=== PATIENT | female | born 1945 | race Two or more races ===

== ENCOUNTER 2018-03-10 17:10 | Inpatient (IN) | payer OTHER ==
[~2018-03-10] VITALS: Ht 157.5 cm; Wt 45.4 kg
[2018-03-11] MEDS ORDERED: OLAN5TAB3 PO (01:45)
[2018-03-11] MEDS ORDERED: QUET200T PO (01:46)
[2018-03-11] MEDS ORDERED: ATOR10TA PO (01:46)
[2018-03-11] MEDS ORDERED: BENZ0.5T43 PO (01:48)
[2018-03-11] MEDS ORDERED: INSU100V10 SQ (01:50)
[2018-03-11] MEDS ORDERED: LEVO88TA5 PO (01:51)
[2018-03-11] MEDS ORDERED: ALBU2.5V13 NEB (01:52)
[2018-03-11] MEDS ORDERED: IPRA0.2S49 NEB (01:53)
[2018-03-11] MEDS ORDERED: METF-440 PO (01:55)
[2018-03-11 01:59] VITALS: BP 130/68
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
[2018-03-11] MEDS: *INSULIN REGULAR(HUMULIN R)HUM 100 UNIT/ML VIAL SQ PRN ×2 (02:27→21:13)
[2018-03-11] MEDS ORDERED: DEXTROSE 50%-WATER 50 ML DISP.SYRIN IV PRN ×2 (02:30→08:30)
[2018-03-11] MEDS ORDERED: MAG HYDROX/AL HYDROX/SIMETH 30 ML UDC PO PRN (02:30)
[2018-03-11] MEDS ORDERED: MAGNESIUM HYDROXIDE 30 ML UDC PO PRN (02:30)
[2018-03-11] MEDS ORDERED: ALBUTEROL FS 2.5 MG/3 ML VIAL.NEB NEB PRN (02:30)
[2018-03-11] MEDS ORDERED: ACETAMINOPHEN 325 MG TABLET PO PRN (02:30)
[2018-03-11] MEDS ORDERED: INSULIN REGULAR, HUMAN 100 UNIT/ML 3 ML VIAL SQ PRN (02:30)
[2018-03-11] MEDS ORDERED: BLOOD SUGAR DIAGNOSTIC 1 EACH STRIP VI SCH (02:30)
--- NOTE | 2018-03-11 02:40 | NUR ---
GPS RN NOTES BLOOD SUGAR CHECK AND BLOOD SUGAR WAS 353 MG/DL ,NOTIFED PROPERTIES SUPERVISOR TELEPHONE ORDERS RECEIVED AND CARRIED OUT. INSULLIN REGULAR 10 UNIT GIVEN PER MD ORDERS. PT. SLEEPING, AT THIS TIME ,NO ACUTE DISTRESS NOTED, DENIES ANY PAIN DISCOMFORT AT THIS TIME
[2018-03-11] MEDS: IPRATROPIUM NEB FS 0.5 MG/2.5 ML AMPUL.NEB NEB PRN (05:33)
[2018-03-11 08:00] VITALS: BP 117/56
--- NOTE | 2018-03-11 08:00 | NUR ---
GPS/RN BS 348, 16 UNITS REGULAR INSULIN ADMINISTERED PER SLIDING SCALE. WILL CONTINUE TO MONITOR.
--- NOTE | 2018-03-11 08:00 | NUR ---
GPS/RN BS 348, 16 UNITS REGULAR INSULIN ADMINISTERED. WILL CONTINUE TO MONITOR.
[2018-03-11] MEDS ORDERED: IPRATROPIUM NEB FS 0.5 MG/2.5 ML AMPUL.NEB NEB PRN (08:30)
[2018-03-11] MEDS ORDERED: ALBUTEROL FS 2.5 MG/0.5 ML VIAL.NEB NEB PRN (08:30)
[2018-03-11] MEDS ORDERED: *INSULIN REGULAR(HUMULIN R)HUM 100 UNIT/ML VIAL SQ PRN (08:30)
[2018-03-11] MEDS: ATORVASTATIN 10 MG TABLET PO SCH (09:33)
[2018-03-11] MEDS: INSULIN GLARGINE, 100 UNIT/ML CARTRIDGE SQ SCH (09:40)
[2018-03-11] MEDS: INSULIN REGULAR, HUMAN 100 UNIT/ML 3 ML VIAL SQ PRN ×3 (09:41→21:08)
[2018-03-11] MEDS: clonazePAM 0.5 MG TABLET PO PRN (10:14)
--- NOTE | 2018-03-11 11:50 | NUR ---
EBTTIE met with APS Worker, Chloe Wang ([phone]), and discussed the pt's history and plan. The APS worker stated that the pt cannot be discharged back home to the because she stated that she is not comfortable with him and it would not be considered a safe discharge. The SW informed her that she was informed that the pt's son would take the pt upon discharge. BETTIE does not have the son's phone number but will be contacting the for that information.
--- NOTE | 2018-03-11 11:53 | NUR ---
SW met with the pt and she was disoriented and unable to answer any of the questions relating to the psychosocial assessment. BETTIE will conduct the assessment with the pt's family members.
--- NOTE | 2018-03-11 13:00 | NUR ---
GPS/RN RADHA BLAND NOTIFIED THAT PATIENT IS REFUSING LUNCH OR SNACKS AND BS READING OF 381. NO NEW ORDERS AT THIS TIME. NO DISTRESS AT THIS TIME, WILL CONTINUE TO MONITOR.
--- NOTE | 2018-03-11 13:15 | NUR ---
GPS/RN RADHA BLAND NOTIFIED THAT PATIENT IS CONGESTED. NO NEW ORDERS AT THIS TIME.
[2018-03-11] MEDS: BLOOD SUGAR DIAGNOSTIC 1 EACH STRIP IN SCH ×3 (13:16→20:58)
[2018-03-11] MEDS: OLANZAPINE 5 MG TABLET PO SCH ×2 (15:04→20:21)
[2018-03-11] MEDS: DIVALPROEX SODIUM 250 MG TABLET.DR PO SCH ×2 (15:04→20:20)
[2018-03-11 16:00] VITALS: BP 100/55
--- NOTE | 2018-03-11 16:16 | NUR ---
BETTIE called the pt's , Rohit ([phone]), and conducted the psychosocial assessment with him.
--- NOTE | 2018-03-11 16:18 | NUR ---
SW called the pt's previous manager social work at [facility], Terrie Stern ([phone]), and discussed the pt's behaviors.
--- NOTE | 2018-03-11 18:09 | NUR ---
GPS/RN BS 273, ADMINISTERED 12 UNITS REGULAR INSULIN PER SLIDING SCALE. WILL CONTINUE TO MONITOR.
[2018-03-11] MEDS: TEMAZEPAM 7.5 MG CAPSULE PO PRN (20:21)
--- NOTE | 2018-03-11 20:22 | NUR ---
TEMAZEPAM 7.5 MG CAP PO GIVEN FOR SLEEP PER HER REQUEST.
--- NOTE | 2018-03-11 21:08 | NUR ---
ACCUCHECK 288 MG/DL, 6 UNITS REGULAR INSULIN SC ADMINISTERED. HS SNACKS GIVEN.
[2018-03-11] MEDS: BENZTROPINE MESYLATE (1 MG) 1 MG TABLET PO SCH (21:17)
[2018-03-12] MEDS: BLOOD SUGAR DIAGNOSTIC 1 EACH STRIP IN SCH ×6 (07:56→22:12)
[2018-03-12 08:00] VITALS: BP 103/57
[2018-03-12] MEDS: LEVOTHYROXINE SODIUM 88 MCG TABLET PO SCH (08:16)
--- NOTE | 2018-03-12 08:55 | NUR ---
UR Note: BETTIE faxed a clinical to Pramod ([phone] ext [phone]) from [facility] to the fax number: [phone]. Addendum: 03/12/18 at 1112 by JAMARCUS ALEXANDRE RMG ([facility])
[2018-03-12] MEDS: OLANZAPINE 5 MG TABLET PO SCH ×2 (10:00→20:10)
[2018-03-12] MEDS: ATORVASTATIN 10 MG TABLET PO SCH (10:00)
[2018-03-12] MEDS: DIVALPROEX SODIUM 250 MG TABLET.DR PO SCH ×2 (10:01→20:10)
[2018-03-12] MEDS: INSULIN GLARGINE, 100 UNIT/ML CARTRIDGE SQ SCH (10:18)
[2018-03-12] MEDS: INSULIN REGULAR, HUMAN 100 UNIT/ML 3 ML VIAL SQ PRN ×3 (10:20→21:12)
[2018-03-12 10:29] LABS: ALANINE AMINOTRANSFERASE 13 U/L (12-78); ALBUMIN 3.1 g/dL (3.4-5.0); ALKALINE PHOSPHATASE 69 U/L (46-116); ASPARTATE AMINOTRANSFERASE 9 U/L (15-37); BILIRUBIN,TOTAL 0.5 mg/dL (0.2-1.0); CARBON DIOXIDE 29 mmol/L (21-32); CHLORIDE 102 mmol/L (98-107); CREATININE 0.8 mg/dL (0.6-1.3); GLUCOSE 184 mg/dL (74-106); POTASSIUM 4.2 mmol/L (3.5-5.1); SODIUM SERUM 139 mmol/L (136-145); TOTAL PROTEIN, SERUM 7.4 g/dL (6.4-8.2); UREA NITROGEN, BLOOD 25 mg/dL (7-18)
[2018-03-12 10:31] LABS: CHOLESTEROL 183 mg/dL (<200); HDL CHOLESTEROL 59 mg/dL (40-60); LDL 109 mg/dL (0-99); TRIGLYCERIDES 119 mg/dL (30-150)
[2018-03-12 10:47] LABS: HEMATOCRIT 34 % (33-45); HEMOGLOBIN 11.4 g/dL (11.5-14.8); MEAN CORPUSCULAR HGB CONC 34 g/dl (31.0-36.0); MEAN CORPUSCULAR VOLUME 92 fL (82-100); RDW COEFFICIENT OF VARIATION 13.3 (11.5-15.0); RED BLOOD CELL COUNT(AUTO) 3.69 MIL/uL (4.0-5.2)
[2018-03-12 10:48] LABS: BASOPHILS % (AUTO) 0.6 % (0.0-2.0); EOSINOPHILS % (AUTO) 1.2 % (0.0-6.0); LYMPHOCYTES # (AUTO) 2.6 /CMM (0.8-4.8); LYMPHOCYTES % (AUTO) 32.6 % (20.0-44.0); MONOCYTES # (AUTO) 0.8 /CMM (0.1-1.30); MONOCYTES % (AUTO) 9.5 % (2.0-12.0); NEUTROPHILS # (AUTO) 4.5 /CMM (1.8-8.9); NEUTROPHILS % (AUTO) 56.1 % (43.0-81.0); PLATELET COUNT (AUTO) 366 /CMM (150-450)
--- NOTE | 2018-03-12 11:11 | NUR ---
Initial Discharge Plan: Pt currently resides with her in a condo located at [facility] [address]; ([phone]). Per APS Practical Nurse and pt's insurance group and the psychiatrist in her care, a plan of discharging the pt home in not considered a safe discharge. BETTIE will work with the MD and the pt regarding appropriate discharge planning. SW will form a safe and proper discharge.
--- NOTE | 2018-03-12 11:12 | NUR ---
UR Note: Pramod ([phone] ext [phone]) from [facility] called the SW and discussed that the pt has been in and out of hospitals three times in the last month and that discharging the pt home to the is not a safe plan.
[2018-03-12 16:00] VITALS: BP 111/64
--- NOTE | 2018-03-12 17:26 | NUR ---
GPS/RN-NOTES AT 1630 PATIENT BLOOD SUGAR WAS 43MG/DL, RADHA BLAND IN THE UNIT AND MADE AWARE. OFFERED ORANGE JUST AND RECHECK AGAIN. AT THIS TIME BS WAS UP TO 86MG/DL AND RADHA BLAND STILL IN THE UNIT AND MADE AWARE OF THE 2ND RESULT. PATIENT EATING HER DINNER AT THIS TIME. NO S/SX OF HYPOGLYCEMIC,NO COMPLAIN OF ANY DISCOMFORT.
[2018-03-12] MEDS ORDERED: DEXTROSE 50%-WATER 50 ML DISP.SYRIN IV PRN (17:30)
[2018-03-12 20:00] VITALS: BP 124/65
[2018-03-12] MEDS: TEMAZEPAM 7.5 MG CAPSULE PO PRN (20:10)
--- NOTE | 2018-03-12 20:10 | NUR ---
TEMAZEPAM 7.5 MG CAP 1 PO GIVEN FOR REST AND SLEEP.
--- NOTE | 2018-03-12 21:12 | NUR ---
ACCUCHECK 211 MG/DL, 4 UNITS HUMULIN R INSULIN SC ADMINISTERED LLQ. HS SNACKS GIVEN. MED COMPLIANT
[2018-03-12] MEDS: BENZTROPINE MESYLATE (1 MG) 1 MG TABLET PO SCH (21:14)
[2018-03-13 08:00] VITALS: BP 100/59
[2018-03-13] MEDS: ATORVASTATIN 10 MG TABLET PO SCH (08:57)
[2018-03-13] MEDS: BLOOD SUGAR DIAGNOSTIC 1 EACH STRIP IN SCH ×4 (08:57→21:24)
[2018-03-13] MEDS: OLANZAPINE 5 MG TABLET PO SCH ×2 (08:57→21:24)
[2018-03-13] MEDS: DIVALPROEX SODIUM 250 MG TABLET.DR PO SCH ×2 (08:57→21:24)
[2018-03-13] MEDS: LEVOTHYROXINE SODIUM 88 MCG TABLET PO SCH (08:57)
[2018-03-13] MEDS: INSULIN GLARGINE, 100 UNIT/ML CARTRIDGE SQ SCH (08:59)
[2018-03-13] MEDS: INSULIN REGULAR, HUMAN 100 UNIT/ML 3 ML VIAL SQ PRN ×2 (12:34→21:35)
[2018-03-13 16:02] VITALS: BP 107/68
[2018-03-13 18:09] LABS: APPEARANCE,URINE SL CLOUDY (CLEAR); BILIRUBIN,URINE NEGATIVE (NEGATIVE); BLOOD, URINE NEGATIVE Ery/uL (NEGATIVE); COLOR,URINE YELLOW (YELLOW); KETONES,URINE NEGATIVE (NEGATIVE); LEUKOCYTE ESTERASE ,URINE NEGATIVE (NEGATIVE); NITRITE, URINE NEGATIVE (NEGATIVE); PROTEIN,URINE NEGATIVE (NEGATIVE); UGLUCOSE 3+ mg/dL (NEGATIVE); UROBILINOGEN,URINE 0.2 EU/dL (0.2)
[2018-03-13 18:30] LABS: RBC,URINE 0-2 /HPF (0-2)
[2018-03-13 18:31] LABS: BACTERIA,URINE Few /HPF (None Seen); SQUAMOUS EPITHELIAL CELL,UR Rare /HPF (None Seen); WBC,URINE 0-2 /HPF (0-3)
[2018-03-13 20:00] VITALS: BP 118/67
[2018-03-13] MEDS: BENZTROPINE MESYLATE (1 MG) 1 MG TABLET PO SCH (21:25)
[2018-03-13] MEDS: TEMAZEPAM 7.5 MG CAPSULE PO PRN (21:28)
--- NOTE | 2018-03-13 21:36 | NUR ---
AXCCUCHECK 196MG/DL, 3 UNITS REG. INSULIN SC ADMINISTERED. HS SNACKS GIVEN.
[2018-03-14] MEDS: BLOOD SUGAR DIAGNOSTIC 1 EACH STRIP IN SCH ×4 (07:56→21:42)
--- NOTE | 2018-03-14 07:59 | NUR ---
[id number]: BLOOD SUGAR IS 120 MG/DL AND NO INSULIN REQUIRED AT THIS TIME
[2018-03-14 08:00] VITALS: BP 115/64
[2018-03-14] MEDS: INSULIN GLARGINE, 100 UNIT/ML CARTRIDGE SQ SCH (09:00)
[2018-03-14] MEDS: DIVALPROEX SODIUM 250 MG TABLET.DR PO SCH ×2 (09:07→20:43)
[2018-03-14] MEDS: LEVOTHYROXINE SODIUM 88 MCG TABLET PO SCH (09:07)
[2018-03-14] MEDS: ATORVASTATIN 10 MG TABLET PO SCH (09:07)
[2018-03-14] MEDS: OLANZAPINE 5 MG TABLET PO SCH ×2 (09:07→20:43)
[2018-03-14] MEDS: INSULIN REGULAR, HUMAN 100 UNIT/ML 3 ML VIAL SQ PRN ×3 (12:11→22:00)
--- NOTE | 2018-03-14 12:11 | NUR ---
[id number]: BLOOD SUGAR IS 310 MG/DL AND GAVE 8 UNITS OF REGULAR INSULIN
[2018-03-14 16:00] VITALS: BP 120/63
--- NOTE | 2018-03-14 17:28 | NUR ---
[id number]: BLOOD SUGAR IS 151 MG/DL AND GAVE 2 UNITS OF REGULAR INSULIN
--- NOTE | 2018-03-14 19:12 | NUR ---
GPS/RN OPENING NOTES RECEIVED PATIENT , AWAKE, ALERT X2, ABLE TO PARTICIPATE WITH CARE, NO S/S OF DISCOMFORT OR CHANGES OF BEHAVIOR EXHIBITED. SKIN WARM TO TOUCH, RECEIVED ENDORSEMENT FROM AM RN FOR BILLY. WILL CONTINUE TO MONITOR.WILL MONITOR ANY S/S OF HYPO/HYPERGLYCEMIA.
[2018-03-14 19:56] VITALS: BP 120/63
[2018-03-14 20:00] VITALS: BP 98/51
[2018-03-14 20:04] VITALS: BP 98/51
[2018-03-14] MEDS: BENZTROPINE MESYLATE (1 MG) 1 MG TABLET PO SCH (21:03)
--- NOTE | 2018-03-15 03:20 | NUR ---
GPS/RN NOTES BLOOD SUGAR CHECK 265 AND ADMINISTER 6UNIT
[2018-03-15] MEDS: BLOOD SUGAR DIAGNOSTIC 1 EACH STRIP IN SCH ×4 (07:07→21:01)
--- NOTE | 2018-03-15 07:15 | NUR ---
gps/rn notes BLOOD SUGAR CHECK AT 202
[2018-03-15 08:00] VITALS: BP 98/59
[2018-03-15] MEDS: INSULIN REGULAR, HUMAN 100 UNIT/ML 3 ML VIAL SQ PRN ×4 (08:21→22:01)
[2018-03-15] MEDS: INSULIN GLARGINE, 100 UNIT/ML CARTRIDGE SQ SCH (08:23)
[2018-03-15] MEDS: DIVALPROEX SODIUM 250 MG TABLET.DR PO SCH ×2 (08:31→20:16)
[2018-03-15] MEDS: ATORVASTATIN 10 MG TABLET PO SCH (08:31)
[2018-03-15] MEDS: LEVOTHYROXINE SODIUM 88 MCG TABLET PO SCH (08:31)
[2018-03-15] MEDS: OLANZAPINE 5 MG TABLET PO SCH ×2 (08:33→20:17)
--- NOTE | 2018-03-15 09:45 | NUR ---
UR Note: BETTIE faxed a clinical to Pramod ([phone] ext [phone]) [place] [facility] [place] the fax number: [phone].
--- NOTE | 2018-03-15 12:06 | NUR ---
UR Note: SW called Pramod ([phone] ext [phone]) from [facility] and left a message on his voicemail stating that the pt needs placement due to the fact that her is unable to take care of her in the way that she needs.
--- NOTE | 2018-03-15 12:32 | NUR ---
UR Note: Pramod ([phone] ext [phone]) from [facility] called the SW and informed her that he needs to know if she has Medical because that would make placement but if not he is going to present this case and see if [facility] will authorize placement.
--- NOTE | 2018-03-15 12:41 | NUR ---
BETTIE called the pt's , Rohit ([phone]), and asked him if he knew about whether or not the pt has Medical. The pt's stated that he does not believe that she does.
--- NOTE | 2018-03-15 12:42 | NUR ---
UR Note: BETTIE called Pramod ([phone] ext [phone]) [place] [facility] and informed him that the pt does not have Medical. The benefits of applying were then discussed.
[2018-03-15 16:00] VITALS: BP 124/81
[2018-03-15] MEDS ORDERED: DIVALPROEX SODIUM 250 MG TABLET.DR PO SCH (18:00)
[2018-03-15 20:05] VITALS: BP 116/63
[2018-03-15] MEDS: TEMAZEPAM 7.5 MG CAPSULE PO PRN (20:23)
--- NOTE | 2018-03-15 20:36 | NUR ---
AT 2022, TEMAZEPAM 7.5 MG CAP PO GIVEN FOR SLEEP. PATIENT MED COOPERATIVE, MED COMPLIANT.
[2018-03-15] MEDS: BENZTROPINE MESYLATE (1 MG) 1 MG TABLET PO SCH (21:01)
--- NOTE | 2018-03-15 21:02 | NUR ---
ACCUCHECK 276 MG/DL.
[2018-03-16] MEDS: BLOOD SUGAR DIAGNOSTIC 1 EACH STRIP IN SCH ×4 (07:56→21:07)
[2018-03-16 08:00] VITALS: BP 100/59
[2018-03-16] MEDS: INSULIN REGULAR, HUMAN 100 UNIT/ML 3 ML VIAL SQ PRN ×4 (08:01→21:10)
[2018-03-16] MEDS: DIVALPROEX SODIUM 250 MG TABLET.DR PO SCH ×2 (08:49→20:16)
[2018-03-16] MEDS: ATORVASTATIN 10 MG TABLET PO SCH (08:49)
[2018-03-16] MEDS: OLANZAPINE 5 MG TABLET PO SCH ×2 (08:49→20:16)
[2018-03-16] MEDS: LEVOTHYROXINE SODIUM 88 MCG TABLET PO SCH (08:49)
--- NOTE | 2018-03-16 09:34 | NUR ---
UR Note: BETTIE faxed a clinical to Pramod ([phone] ext [phone]) from [facility] to the fax number: [phone].
--- NOTE | 2018-03-16 09:39 | NUR ---
UR Note: BETTIE called Pramod ([phone] ext [phone]) from [facility] and informed him that Sonia is asking for the face sheet, H and P and medications faxed to her.
[2018-03-16] MEDS: INSULIN GLARGINE, 100 UNIT/ML CARTRIDGE SQ SCH (09:42)
--- NOTE | 2018-03-16 09:46 | NUR ---
UR Note: BETTIE faxed a clinical to Sonia [place] [facility] [place] the fax number: [phone].
--- NOTE | 2018-03-16 10:05 | NUR ---
BETTIE faxed a referral to Dior ([phone]) from [facility] to the fax number: [phone].
--- NOTE | 2018-03-16 11:28 | NUR ---
Moe ([phone]) from [facility] ([facility]) came to assess the pt with the SW being present.
--- NOTE | 2018-03-16 13:58 | NUR ---
SW called the pt's , Rohit ([phone]), and informed him that the SW and the insurance company are working together to find a facility that is authorized with each other for the pt to receive more care. The pt's was worried about the ramirez but the SW explained that if it is authorized through the insurance company then the pt will not have to pay out of pocket for a period of time.
--- NOTE | 2018-03-16 14:06 | NUR ---
UR Note: BETTIE called Pramod ([phone] ext [phone]) from [facility] and he informed her that the case went to their Commercial Print Salesman and that they are trying to work on finding a facility for the pt. Pramod asked the SW to find out what kind of funds the pt has for a potential Assisted Living once the SNF time is complete.
--- NOTE | 2018-03-16 15:30 | NUR ---
UR Note: SW returned the phone call from Pramod [phone]) from [facility] and the pt's Depakote medication was discussed.
[2018-03-16 16:00] VITALS: BP 116/52
[2018-03-16] MEDS: IPRATROPIUM NEB FS 0.5 MG/2.5 ML AMPUL.NEB NEB PRN (16:57)
[2018-03-16 20:29] VITALS: BP 139/69
[2018-03-16] MEDS: TEMAZEPAM 7.5 MG CAPSULE PO PRN (21:07)
[2018-03-16] MEDS: BENZTROPINE MESYLATE (1 MG) 1 MG TABLET PO SCH (21:07)
--- NOTE | 2018-03-16 21:11 | NUR ---
ACCUCHECK 310 MG/DL, 8 UNITS REGULAR INSULIN SC ADMINISTERED. HAD JELLO AND APPLE JUICE 150 ML FOR SNACKS.
--- NOTE | 2018-03-16 21:12 | NUR ---
AT 2106, TEMAZEPAM 7.5 MG CAP 1 PO GIVEN FOR SLEEP.
[2018-03-17] MEDS: BLOOD SUGAR DIAGNOSTIC 1 EACH STRIP IN SCH ×4 (07:57→21:26)
[2018-03-17 08:00] VITALS: BP 111/72
[2018-03-17] MEDS: DIVALPROEX SODIUM 250 MG TABLET.DR PO SCH ×2 (08:20→21:25)
[2018-03-17] MEDS: OLANZAPINE 5 MG TABLET PO SCH ×2 (08:20→21:25)
[2018-03-17] MEDS: ATORVASTATIN 10 MG TABLET PO SCH (08:20)
[2018-03-17] MEDS: LEVOTHYROXINE SODIUM 88 MCG TABLET PO SCH (08:20)
[2018-03-17] MEDS: INSULIN GLARGINE, 100 UNIT/ML CARTRIDGE SQ SCH (08:27)
[2018-03-17] MEDS: INSULIN REGULAR, HUMAN 100 UNIT/ML 3 ML VIAL SQ PRN ×4 (08:28→21:50)
--- NOTE | 2018-03-17 10:42 | NUR ---
UR Note: Pramod ([phone] ext [phone]) from [facility] called the SW and informed her that the case was taken to the curator medical museum who stated that the pt is authorized for 3 alf days. then informed Pramod that the medications have not been changed yet and that Consuelo from the hospital is working on applying for Medi-keith for the pt.
--- NOTE | 2018-03-17 10:42 | NUR ---
UR Note: BETTIE faxed a clinical to Pramod ([phone]) from [facility] to the fax number: [phone].
[2018-03-17] MEDS: LEVOFLOXACIN (500MG) 500 MG TABLET PO SCH (11:04)
--- NOTE | 2018-03-17 11:15 | NUR ---
Consuelo Zimmerman at extension [phone] called the SW and stated that she is going to contact the pt's to ask him some questions before applying the pt for Medi-keith.
--- NOTE | 2018-03-17 13:31 | NUR ---
UR Note: Pramod ([phone] ext [phone]) from [facility] called the SW and informed her that the pt was accepted to [facility] ([facility]) and they currently have a bed available.
--- NOTE | 2018-03-17 15:13 | NUR ---
BETTIE called the pt's , Rohit ([phone]), and informed him that the pt is going to be discharged to [facility] ([facility]). Pt's agreed to the placement and took down the information on the facility.
--- NOTE | 2018-03-17 15:14 | NUR ---
BETTIE called Breanna ([phone]) from [facility] ([facility]) and asked about the psychiatrist and commercial designer for the pt.
[2018-03-17 16:00] VITALS: BP 117/59
[2018-03-17 19:56] VITALS: BP 106/62
[2018-03-17] MEDS: clonazePAM 0.5 MG TABLET PO PRN (21:25)
[2018-03-17] MEDS: BENZTROPINE MESYLATE (1 MG) 1 MG TABLET PO SCH (21:26)
[2018-03-18] MEDS ORDERED: LEVOTHYROXINE SODIUM 88 MCG TABLET PO SCH (07:30)
[2018-03-18 08:00] VITALS: BP 122/70
--- NOTE | 2018-03-18 08:00 | NUR ---
GPS/RN BS 103, NO COVERAGE NEEDED
[2018-03-18] MEDS: BLOOD SUGAR DIAGNOSTIC 1 EACH STRIP IN SCH ×2 (08:45→13:21)
[2018-03-18] MEDS: ATORVASTATIN 10 MG TABLET PO SCH (08:45)
[2018-03-18] MEDS: OLANZAPINE 5 MG TABLET PO SCH (08:45)
[2018-03-18] MEDS: DIVALPROEX SODIUM 250 MG TABLET.DR PO SCH (08:45)
[2018-03-18] MEDS ORDERED: INSULIN GLARGINE, 100 UNIT/ML CARTRIDGE SQ SCH (09:00)
[2018-03-18] MEDS: LEVOFLOXACIN (500MG) 500 MG TABLET PO SCH (10:09)
--- NOTE | 2018-03-18 11:25 | NUR ---
UR Note: BETTIE faxed a clinical to Pramod ([phone] ext [phone]) from [facility] to the fax number: [phone].
--- NOTE | 2018-03-18 11:27 | NUR ---
UR Note: Pramod ([phone] ext [phone]) from [facility] called the SW and the discharge details were discussed. Pramod also reminded the SW to send a discharge clinical once the pt is discharged.
--- NOTE | 2018-03-18 12:00 | NUR ---
GPS/RN BS 368 10 UNITS REGULAR INSULIN ADMINISTERED, WILL CONTINUE TO MONITOR
[2018-03-18] MEDS: INSULIN REGULAR, HUMAN 100 UNIT/ML 3 ML VIAL SQ PRN (13:27)
--- NOTE | 2018-03-18 13:50 | NUR ---
GPS/RN PATIENT ADAMANTLY REFUSED D/C PHOTOS X 3, EXPLAINED RISKS AND BENEFITS.
[2018-03-18 16:08] VITALS: BP 103/69
--- NOTE | 2018-03-18 16:13 | NUR ---
UR Note: BETTIE faxed a discharge clinical to Pramod ([phone]) from [facility] to the fax number: [phone].
--- NOTE | 2018-03-18 16:13 | NUR ---
Discharge Note: Pt was discharged to [facility] (SNF) located at [address] [place] [address]; . Pt was transported via [facility] (Trip #[id number]) at 4pm. Pts , Rohit ([phone]), is aware of the discharge and has approved. Upon discharge, the pt appeared to be in a euthymic mood with a calm affect. Pt denied both suicidal and homicidal ideation as well as auditory and visual hallucinations. Pt will be under the care of her psychiatrist, Dr. Watson, [place] [address] [place] [address]; and her timber treatment plant operator, Dr. Mckinley, located at [address], [place] [address]; .
--- NOTE | 2018-03-18 16:30 | NUR ---
GPS/RN PATIENT CLEARED FOR DISCHARGE TO [facility] SNF BY DR WELDON AND DR COUGHLIN. BOTH DR'S AWARE OF DISCHARGE, MEDICATIONS RECONCILED. EXIT CARE, AFTER CARE PLAN AND MEDICATIONS EXPLAINED TO PATIENT, VERBALIZED UNDERSTANDING. BELONGINGS AND VALUABLES RETURNED TO PATIENT, PATIENT REFUSED D/C PHOTOS X 3, EXPLAINED RISKS AND BENEFITS, PATIENT REFUSED TO SIGN D/C FORMS, COSIGNED BY 2 RN. PATIENT DENIES SI/HI/AVH UPON DISCHARGE, PSYCHIATRIC TREATMENT PLANS MET. REPORT CALLED INTO FACILITY, SPOKE WITH CLEM. LEFT UNIT CALM, COOPERATIVE, NO DISTRESS NOTED WITH AMBULANCE TRANSPORT AT SIDE.
== END 2018-03-18 16:30 | DRG 885 ==
LOC: GPS 03-11 00:35
PROVIDERS: ADMIT Psychiatry & Neurology Psychiatry; ATTEND Internal Medicine
DX: F31.9 Bipolar disorder, unspecified (principal); E11.65 Type 2 diabetes mellitus with hyperglycemia; E44.1 Mild protein-calorie malnutrition; Z68.1 Body mass index [BMI] 19.9 or less, adult; F41.9 Anxiety disorder, unspecified; E03.9 Hypothyroidism, unspecified; E78.5 Hyperlipidemia, unspecified; F17.210 Nicotine dependence, cigarettes, uncomplicated; F20.9 Schizophrenia, unspecified; I10 Essential (primary) hypertension; J44.9 Chronic obstructive pulmonary disease, unspecified; F03.90 Unspecified dementia, unspecified severity, without behavioral disturbance, psychotic disturbance, mood disturbance, and anxiety; Z73.6 Limitation of activities due to disability; H40.9 Unspecified glaucoma; Z79.4 Long term (current) use of insulin; E11.649 Type 2 diabetes mellitus with hypoglycemia without coma
CPT/HCPCS: 36415; 71045-TC; 80053-TC; 80061-TC; 80164-TC; 81000-TC; 82962-TC; 84443-TC; 85025-TC; 87081-TC; J1815

== ENCOUNTER 2018-09-07 20:47 | Inpatient (IN) | payer OTHER ==
[~2018-09-07] VITALS: Ht 152.4 cm; Wt 53.5 kg
[~2018-09-07 20:47] MED LIST: ATOR10TA PO; BRIN8DRO EACHEYE; DAPA5TAB PO; INSU100I19 SQ; LEVO88TA5 PO; MINE3.5O EACHEYE; POLY15DR40 EACHEYE
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
[2018-09-07] MEDS ORDERED: MAGNESIUM HYDROXIDE 30 ML UDC PO PRN (21:30)
[2018-09-07] MEDS ORDERED: MAG HYDROX/AL HYDROX/SIMETH 30 ML UDC PO PRN (21:30)
[2018-09-07] MEDS ORDERED: LORAZEPAM 0.5 MG TABLET PO PRN (21:30)
[2018-09-07] MEDS ORDERED: TEMAZEPAM 7.5 MG CAPSULE PO PRN (21:30)
[2018-09-07] MEDS ORDERED: ACETAMINOPHEN 325 MG TABLET PO PRN (21:30)
[2018-09-08 07:37] LABS: ALANINE AMINOTRANSFERASE 20 U/L (12-78); ALBUMIN 3.1 g/dL (3.4-5.0); ALKALINE PHOSPHATASE 62 U/L (46-116); ASPARTATE AMINOTRANSFERASE 17 U/L (15-37); BILIRUBIN,TOTAL 0.2 mg/dL (0.2-1.0); CALCIUM, SERUM 9.1 mg/dL (8.5-10.1); CARBON DIOXIDE 30 mmol/L (21-32); CHLORIDE 108 mmol/L (98-107); CREATININE 0.9 mg/dL (0.6-1.3); GLUCOSE 165 mg/dL (74-106); POTASSIUM 4.2 mmol/L (3.5-5.1); SODIUM SERUM 144 mmol/L (136-145); TOTAL PROTEIN, SERUM 7.3 g/dL (6.4-8.2); UREA NITROGEN, BLOOD 24 mg/dL (7-18)
[2018-09-08 07:43] LABS: CHOLESTEROL 191 mg/dL (<200); HDL CHOLESTEROL 64 mg/dL (40-60); LDL 96 mg/dL (0-99); TRIGLYCERIDES 221 mg/dL (30-150)
[2018-09-08 08:00] VITALS: BP 135/71
[2018-09-08] MEDS ORDERED: Brinzolamide/Brimonid Tart (Simbrinza 1%-0.2% Eye Drops) EACHEYE SCH (09:00)
[2018-09-08] MEDS ORDERED: Dapagliflozin Propanediol (Farxiga) 5 MG PO SCH (09:00)
[2018-09-08] MEDS ORDERED: IPRATROPIUM NEB FS 0.5 MG/2.5 ML AMPUL.NEB NEB PRN (09:30)
[2018-09-08] MEDS ORDERED: DEXTROSE 50%-WATER 50 ML DISP.SYRIN IV PRN (09:30)
[2018-09-08] MEDS ORDERED: ALBUTEROL FS 2.5 MG/0.5 ML VIAL.NEB NEB PRN (09:30)
[2018-09-08] MEDS: LEVOTHYROXINE SODIUM 88 MCG TABLET PO SCH (09:40)
[2018-09-08] MEDS: POLYVINYL ALCOHOL 15 ML BOTTLE EACHEYE SCH ×2 (11:39→16:37)
[2018-09-08] MEDS: BLOOD SUGAR DIAGNOSTIC 1 EACH STRIP IN SCH ×3 (12:17→21:12)
[2018-09-08] MEDS: INSULIN REGULAR, HUMAN 100 UNIT/ML 3 ML VIAL SQ PRN ×3 (12:19→21:18)
--- NOTE | 2018-09-08 12:55 | NUR ---
BETTIE called the pt's , Rohit ([phone]), and informed him that the pt is currently at [facility] and stated that the SW would like to discuss the pt's initial discharge plan. BETTIE stated that she would follow up with [facility] and the insurance company to ensure whether or not the pt can return.
--- NOTE | 2018-09-08 12:59 | NUR ---
Initial Discharge Plan: Pt currently resides at [facility] located at [address] [place] [address]; ([phone]). Per pt's , Rohit ([phone]), stated that he no longer has control over her because the [facility] now does due to the Senior Services hearing. SW will work with the pt and the MD regarding appropriate discharge planning. SW will form a safe and proper discharge form.
--- NOTE | 2018-09-08 13:17 | NUR ---
BETTIE contacted Calvin ([phone]) from [facility] and inquired about whether or not the pt can return to the facility and he stated that due to behavioral concerns the pt cannot return and her insurance company has agreed to help place her elsewhere.
--- NOTE | 2018-09-08 14:01 | NUR ---
UR Note: Natalie ([phone]) from [facility] called the SW and requested a clinical to be faxed to [phone].
--- NOTE | 2018-09-08 14:09 | NUR ---
UR Note: BETTIE faxed a clinical to [facility] with attention to case assembler, Natalie, to the fax number: [phone].
[2018-09-08 16:00] VITALS: BP 124/52
--- NOTE | 2018-09-08 17:12 | NUR ---
NOTIFIED JENN () REGARDING THE NON FORMULARY MED, PER JENN , THEY CAN NOT PROVIDE IT. NOTIFIED LOVELY (PHARMACIST).
[2018-09-08] MEDS ORDERED: BRINZOLAMIDE 1 % OPHTH SOLN 10 ML BOTTLE EACHEYE SCH (17:30)
[2018-09-08] MEDS: DORZOLAMIDE OPTH 2% 10 ML BOTTLE EACHEYE SCH (18:19)
[2018-09-08] MEDS: BRIMONIDINE TARTRATE OPHT SOLN 5 ML BOTTLE EACHEYE SCH (18:19)
[2018-09-08 20:29] VITALS: BP 118/62
[2018-09-08] MEDS: LATANOPROST EYE DROP 0.005% 2.5 ML BOTTLE EACHEYE SCH (21:08)
[2018-09-08] MEDS: DIVALPROEX SODIUM 250 MG TABLET.DR PO SCH (21:08)
[2018-09-08] MEDS: ATORVASTATIN 10 MG TABLET PO SCH (21:08)
[2018-09-08] MEDS: OLANZAPINE 10 MG TABLET PO SCH (21:08)
[2018-09-08] MEDS: INSULIN GLARGINE, 100 UNIT/ML CARTRIDGE SQ SCH (21:16)
[2018-09-08] MEDS: LANOLIN/MIN OIL/PETROLAT,WHT 3.5 GM TUBE EACHEYE SCH (22:00)
[2018-09-08] MEDS ORDERED: TRAVOPROST (BENZALKONIUM) 2.5 ML BOTTLE EACHEYE SCH (22:00)
[2018-09-09] MEDS: BLOOD SUGAR DIAGNOSTIC 1 EACH STRIP IN SCH ×4 (07:49→21:20)
[2018-09-09 08:00] VITALS: BP 140/63
[2018-09-09] MEDS: LEVOTHYROXINE SODIUM 88 MCG TABLET PO SCH (08:04)
[2018-09-09] MEDS: DIVALPROEX SODIUM 250 MG TABLET.DR PO SCH ×3 (08:10→20:22)
[2018-09-09] MEDS: OLANZAPINE 5 MG TABLET PO SCH (08:10)
[2018-09-09] MEDS: INSULIN REGULAR, HUMAN 100 UNIT/ML 3 ML VIAL SQ PRN ×4 (09:03→21:06)
[2018-09-09] MEDS: POLYVINYL ALCOHOL 15 ML BOTTLE EACHEYE SCH ×2 (09:05→17:08)
[2018-09-09] MEDS: BRIMONIDINE TARTRATE OPHT SOLN 5 ML BOTTLE EACHEYE SCH ×3 (09:05→17:08)
[2018-09-09] MEDS: DORZOLAMIDE OPTH 2% 10 ML BOTTLE EACHEYE SCH ×3 (09:09→17:08)
--- NOTE | 2018-09-09 13:04 | NUR ---
UR Note: BETTIE faxed a clinical to [facility] with attention to case assistant, Natalie, to the fax number: [phone].
[2018-09-09 16:00] VITALS: BP 125/71
[2018-09-09 20:00] VITALS: BP 145/52
[2018-09-09] MEDS: LATANOPROST EYE DROP 0.005% 2.5 ML BOTTLE EACHEYE SCH (21:08)
[2018-09-09] MEDS: INSULIN GLARGINE, 100 UNIT/ML CARTRIDGE SQ SCH (21:08)
[2018-09-09] MEDS: LANOLIN/MIN OIL/PETROLAT,WHT 3.5 GM TUBE EACHEYE SCH (21:17)
--- NOTE | 2018-09-09 21:17 | NUR ---
AKWA TEARS OINTMENT, NOT ADMINISTERED, NOT AVAILABLE INSIDE PT.' S CASSETTE. WILL REQUEST IN THE MORNING, 09/10, NEEDS FOLLOW -UP.
--- NOTE | 2018-09-09 21:19 | NUR ---
ACCUCHECK 313 MG/DL, 8 UNITS REG. INSULIN SC ADMINISTERED. HS SNACKS GIVEN, SANDWICH AND JUICE, ATE 100%.
[2018-09-09] MEDS: ATORVASTATIN 10 MG TABLET PO SCH (21:21)
[2018-09-09] MEDS: OLANZAPINE 10 MG TABLET PO SCH (21:21)
[2018-09-10 08:00] VITALS: BP 158/65
[2018-09-10] MEDS: BLOOD SUGAR DIAGNOSTIC 1 EACH STRIP IN SCH ×4 (08:32→21:19)
[2018-09-10] MEDS: OLANZAPINE 5 MG TABLET PO SCH (08:32)
[2018-09-10] MEDS: LEVOTHYROXINE SODIUM 88 MCG TABLET PO SCH (08:32)
[2018-09-10] MEDS: BRIMONIDINE TARTRATE OPHT SOLN 5 ML BOTTLE EACHEYE SCH ×3 (08:33→17:28)
[2018-09-10] MEDS: POLYVINYL ALCOHOL 15 ML BOTTLE EACHEYE SCH ×2 (08:33→17:27)
[2018-09-10] MEDS: DIVALPROEX SODIUM 250 MG TABLET.DR PO SCH ×3 (08:33→21:20)
[2018-09-10] MEDS: DORZOLAMIDE OPTH 2% 10 ML BOTTLE EACHEYE SCH ×3 (08:34→17:28)
[2018-09-10] MEDS: INSULIN REGULAR, HUMAN 100 UNIT/ML 3 ML VIAL SQ PRN ×4 (08:45→21:24)
--- NOTE | 2018-09-10 09:48 | NUR ---
UR Note: Natalie ([phone]) from [facility] called the SW and she inquired about the pts estimated length of stay. SW stated that the pt is not ready to be discharged at this time but that we are aiming to discharge sometime in the middle of next week. Natalie stated that she would like daily clinicals to be sent so that the pt's stay can be reviewed.
--- NOTE | 2018-09-10 09:51 | NUR ---
UR Note: BETTIE faxed a clinical to [facility] with attention to case supervisor, Natalie, to the fax number: [phone].
--- NOTE | 2018-09-10 09:51 | NUR ---
BETTIE called [facility] ([phone]) and asked to speak to the sprinkler fitter apprentice but BETTIE was redirected to Kamala, [facility] Transporter of Nursing. She was informed that the pt cannot return to the facility. BETTIE will call the insurance company and inform them.
--- NOTE | 2018-09-10 09:59 | NUR ---
UR Note: BETTIE called Natalie ([phone]), mental health case manager from [facility], and left her a voicemail stating that the pt cannot return to the facility. SW informed her to call back so that placement can be discussed and also informed her that the SW will be leaving early today and will not be able to call back until Thursday.
--- NOTE | 2018-09-10 10:08 | NUR ---
UR Note: Natalie ([phone]) from [facility] called the SW back and stated that we can discuss placement on Thursday. SW stated that she will send out referrals and find out if the psychiatrist would like to follow the pt.
--- NOTE | 2018-09-10 10:54 | NUR ---
Dior from [facility] ([phone]) called the SW and stated that they are not going to be accepting the pt back due to her aggression.
--- NOTE | 2018-09-10 10:59 | NUR ---
UR Note: Natalie ([phone]) from [facility] called the SW and stated that she spoke to Jen ([phone]) from [facility] and it was stated that if the MD puts in an order for the pt to have a 1:1 sitter then the facility will take the pt back. SW stated that she will call the facility and confirm this information.
--- NOTE | 2018-09-10 11:01 | NUR ---
BETTIE called Jen ([phone]) from [facility] and informed her that the insurance company informed the SW that the pt will be accepted back to the facility once she is stable if a sitter will be provided and she stated that they are currently discussing the situation with administration and will call the SW back with an update. BETTIE stated that they cannot be confirming placement with the insurance company if they are uncertain when the SW inquires about it. She stated that they will come to a decision and call the SW back.
--- NOTE | 2018-09-10 11:03 | NUR ---
UR Note: Natalie ([phone]) from [facility] called the SW and the SW stated that she spoke to Jen and they are currently speaking to their warehouse administrator to determine whether or not the pt will be accepted back. BETTIE stated that she will contact Natalie once there are any updates.
[2018-09-10 16:00] VITALS: BP 119/67
[2018-09-10 20:00] VITALS: BP 116/72
[2018-09-10] MEDS: ATORVASTATIN 10 MG TABLET PO SCH (21:19)
[2018-09-10] MEDS: OLANZAPINE 10 MG TABLET PO SCH (21:20)
[2018-09-10] MEDS: LATANOPROST EYE DROP 0.005% 2.5 ML BOTTLE EACHEYE SCH (21:27)
[2018-09-10] MEDS ORDERED: INSULIN GLARGINE, 100 UNIT/ML CARTRIDGE SQ SCH (22:00)
[2018-09-10] MEDS: LANOLIN/MIN OIL/PETROLAT,WHT 3.5 GM TUBE EACHEYE SCH (22:00)
[2018-09-11 08:00] VITALS: BP 102/68
[2018-09-11] MEDS: BLOOD SUGAR DIAGNOSTIC 1 EACH STRIP IN SCH ×4 (09:32→21:02)
[2018-09-11] MEDS: OLANZAPINE 5 MG TABLET PO SCH (09:32)
[2018-09-11] MEDS: DIVALPROEX SODIUM 250 MG TABLET.DR PO SCH ×3 (09:32→21:02)
[2018-09-11] MEDS: DORZOLAMIDE OPTH 2% 10 ML BOTTLE EACHEYE SCH ×3 (09:33→18:20)
[2018-09-11] MEDS: BRIMONIDINE TARTRATE OPHT SOLN 5 ML BOTTLE EACHEYE SCH ×3 (09:33→18:24)
[2018-09-11] MEDS: LEVOTHYROXINE SODIUM 88 MCG TABLET PO SCH (09:33)
[2018-09-11] MEDS: POLYVINYL ALCOHOL 15 ML BOTTLE EACHEYE SCH ×2 (09:33→18:25)
[2018-09-11] MEDS: INSULIN REGULAR, HUMAN 100 UNIT/ML 3 ML VIAL SQ PRN ×3 (13:19→22:02)
[2018-09-11 16:00] VITALS: BP 119/62
[2018-09-11 20:00] VITALS: BP 97/57
[2018-09-11] MEDS: ATORVASTATIN 10 MG TABLET PO SCH (21:02)
[2018-09-11] MEDS: LATANOPROST EYE DROP 0.005% 2.5 ML BOTTLE EACHEYE SCH (21:02)
[2018-09-11] MEDS: OLANZAPINE 10 MG TABLET PO SCH (21:03)
[2018-09-11] MEDS: LANOLIN/MIN OIL/PETROLAT,WHT 3.5 GM TUBE EACHEYE SCH (21:05)
--- NOTE | 2018-09-11 21:06 | NUR ---
AKWA TEARS OINTMENT NOT GIVEN, NOT AVAILABLE, NOT FOUND INSIDE MED CASSETTE
[2018-09-11] MEDS ORDERED: INSULIN GLARGINE, 100 UNIT/ML CARTRIDGE SQ SCH (22:00)
[2018-09-12 08:00] VITALS: BP 100/63
[2018-09-12] MEDS: LEVOTHYROXINE SODIUM 88 MCG TABLET PO SCH (08:13)
[2018-09-12] MEDS: OLANZAPINE 5 MG TABLET PO SCH (08:13)
[2018-09-12] MEDS: DIVALPROEX SODIUM 250 MG TABLET.DR PO SCH ×3 (08:13→21:46)
[2018-09-12] MEDS: DORZOLAMIDE OPTH 2% 10 ML BOTTLE EACHEYE SCH ×3 (08:14→16:08)
[2018-09-12] MEDS: BLOOD SUGAR DIAGNOSTIC 1 EACH STRIP IN SCH ×4 (08:14→21:57)
[2018-09-12] MEDS: BRIMONIDINE TARTRATE OPHT SOLN 5 ML BOTTLE EACHEYE SCH ×3 (08:14→16:08)
[2018-09-12] MEDS: POLYVINYL ALCOHOL 15 ML BOTTLE EACHEYE SCH ×2 (08:14→16:08)
[2018-09-12] MEDS: INSULIN REGULAR, HUMAN 100 UNIT/ML 3 ML VIAL SQ PRN ×4 (08:16→22:03)
[2018-09-12 16:00] VITALS: BP 101/63
--- NOTE | 2018-09-12 19:30 | NUR ---
GPS RN NOTE, RECEIVED PATIENT AWAKE AND IN ROOM NO S/S OR COMPLAINTS OF PAIN AT THIS TIME. PATIENT IS DISPLAYING NO S/S OF APPARENT DISTRESS AT THIS TIME. PATIENT BREATHING IS UNLABORED WITH EQUAL RISE AND FALL OF THE CHEST. PATIENT IS ALERT AND ORIENTED X 2 ON ROOM AIR WITH A SPO2 OF 98%. PATIENT IS MED COMPLIANT, DISORGANIZED, ANXIOUS, LABILE, COOPERATIVE, AND NEEDS REORIENTATION. PATIENT DENIES SUICIDE AND HOMICIDAL IDEATIONS AT THIS TIME. PATIENT ASSISTED WITH TURNING AND REPOSITIONING Q2HR AND PRN FOR COMFORT AND CIRCULATION. PATIENT HAS NO NEEDS AT THIS TIME. PATIENT EDUCATED ON THE USE OF THE CALL TOM. PATIENT BED SIDE RAILS ARE UP X 2 FOR SAFETY, BED IS LOCKED AND LOW. WILL CONTINUE TO MONITOR AND MAINTAIN SAFETY Q15 MIN WITH THE HELP OF STAFF.
[2018-09-12 21:04] VITALS: BP 96/50
[2018-09-12] MEDS: ATORVASTATIN 10 MG TABLET PO SCH (21:45)
[2018-09-12] MEDS: OLANZAPINE 10 MG TABLET PO SCH (21:45)
[2018-09-12] MEDS: LANOLIN/MIN OIL/PETROLAT,WHT 3.5 GM TUBE EACHEYE SCH (21:48)
[2018-09-12] MEDS: LATANOPROST EYE DROP 0.005% 2.5 ML BOTTLE EACHEYE SCH (21:48)
--- NOTE | 2018-09-12 21:57 | NUR ---
GPS RN NOTE, PERFORMED ACCU CHECK ON PATIENT WITH A BLOOD SUGAR RESULT OF 338. GAVE 8 UNITS OF REGULAR INSULIN PER SLIDING SCALE AND GAVE 43 UNITS OF LANTUS ORDERED. PATIENT GIVEN PUDDING AND ORANGE JUICE. WILL CONTINUE TO MONITOR THIS PATIENT.
[2018-09-12] MEDS ORDERED: INSULIN GLARGINE, 100 UNIT/ML CARTRIDGE SQ SCH (22:00)
--- NOTE | 2018-09-13 03:00 | NUR ---
GPS RN NOTE, PATIENT HAS A COMPLAINT OF FEELING ANXIOUS AND IS REQUESTING. Addendum: 09/13/18 at 0309 by JOURDAN LORENZANA RN ATIVAN AT THIS TIME. PATIENT VITAL SIGNS ARE STABLE. GAVE ATIVAN 0.5MG PO Q6HR PRN ORDERED. WILL REASSESS FOR ANXIETY AND I WILL CONTINUE TO MONITOR THIS PATIENT.
[2018-09-13 07:07] LABS: BASOPHILS % (AUTO) 0.8 % (0.0-2.0); EOSINOPHILS % (AUTO) 3.8 % (0.0-6.0); HEMATOCRIT 34 % (33-45); HEMOGLOBIN 11.4 g/dL (11.5-14.8); LYMPHOCYTES # (AUTO) 2.2 /CMM (0.8-4.8); MEAN CORPUSCULAR HGB CONC 34 g/dl (31.0-36.0); MEAN CORPUSCULAR VOLUME 94 fL (82-100); MONOCYTES # (AUTO) 0.5 /CMM (0.1-1.30); MONOCYTES % (AUTO) 11.4 % (2.0-12.0); NEUTROPHILS # (AUTO) 1.3 /CMM (1.8-8.9); PLATELET COUNT (AUTO) 248 /CMM (150-450); RED BLOOD CELL COUNT(AUTO) 3.62 MIL/uL (4.0-5.2); WHITE BLOOD COUNT (AUTO) 4.2 K/uL (4.3-11.0)
[2018-09-13 07:17] LABS: CALCIUM, SERUM 8.3 mg/dL (8.5-10.1); CARBON DIOXIDE 26 mmol/L (21-32); CHLORIDE 106 mmol/L (98-107); GLUCOSE 293 mg/dL (74-106); POTASSIUM 4.2 mmol/L (3.5-5.1); SODIUM SERUM 140 mmol/L (136-145); UREA NITROGEN, BLOOD 24 mg/dL (7-18)
[2018-09-13] MEDS: BLOOD SUGAR DIAGNOSTIC 1 EACH STRIP IN SCH ×2 (07:32→12:01)
[2018-09-13 08:00] VITALS: BP 108/56
[2018-09-13] MEDS: BRIMONIDINE TARTRATE OPHT SOLN 5 ML BOTTLE EACHEYE SCH ×2 (08:45→13:14)
[2018-09-13] MEDS: POLYVINYL ALCOHOL 15 ML BOTTLE EACHEYE SCH (08:45)
[2018-09-13] MEDS: DORZOLAMIDE OPTH 2% 10 ML BOTTLE EACHEYE SCH ×2 (08:46→13:14)
[2018-09-13] MEDS: DIVALPROEX SODIUM 250 MG TABLET.DR PO SCH ×2 (08:50→13:22)
[2018-09-13] MEDS: INSULIN REGULAR, HUMAN 100 UNIT/ML 3 ML VIAL SQ PRN ×2 (08:50→13:20)
[2018-09-13] MEDS: OLANZAPINE 5 MG TABLET PO SCH (08:50)
[2018-09-13] MEDS: LEVOTHYROXINE SODIUM 88 MCG TABLET PO SCH (08:50)
--- NOTE | 2018-09-13 12:31 | NUR ---
UR Note: Natalie ([phone]) from [facility] called the SW and stated that she would like an update for the pt. SW stated that she would call [facility] and follow up. SW also stated that she would fax a clinical over.
--- NOTE | 2018-09-13 12:32 | NUR ---
UR Note: BETTIE faxed a clinical to [facility] with attention to pillowcase cleaner, Natalie, to the fax number: [phone].
--- NOTE | 2018-09-13 12:33 | NUR ---
BETTIE called Dior from [facility] [place] ([phone]) and stated that the facility needs to honor the agreement that was made upon the pts admission to the hospital as well as abide by the legal obligation of the 7 day bed hold. She stated that the facility cannot accept her back due to the pt's aggressive behavior. BETTIE stated that she would talk to the MD and the insurance company.
--- NOTE | 2018-09-13 12:37 | NUR ---
BETTIE called Dr. Watson and informed him that the pt is not being accepted back to [facility]. He stated that he would like the BETTIE to work with the insurance company to place the pt elsewhere.
--- NOTE | 2018-09-13 12:41 | NUR ---
UR Note: BETTIE called Natalie ([phone]) from [facility] and informed her that a blast of referrals can be sent out for the pt because we need an accepting facility due to [facility] not taking the pt back. She stated that she received a call from Dior from [facility] who stated that they are willing to take the pt if alternative placements are looked into.
--- NOTE | 2018-09-13 13:25 | NUR ---
Dior from [facility] ([phone]) called the SW and stated that the pt can return to their facility for the time being with a 1:1 sitter. She stated that [facility] understands that they must continue to look for alternative placement for the pt.
--- NOTE | 2018-09-13 13:26 | NUR ---
UR Note: BETTIE called Natalie ([phone]) from [facility] and informed her that the facility is accepting the pt back and that she will be discharged today.
--- NOTE | 2018-09-13 13:27 | NUR ---
BETTIE called the pt's , Rohit ([phone]), and informed him that the pt will be discharged back to [facility] around 4pm.
--- NOTE | 2018-09-13 15:39 | NUR ---
GPS/RN-NOTES PATIENT DISCHARGE TO [facility] TODAY. DR. WELDON AND DR. COUGHLIN AWARE AND AGREES OF PATIENT DISCHARGE WITH ORDERS. PATIENT DID NOT VERBALIZE SI/HI,DENIES VISUAL/AUDITORY HALLUCINATIONS AT THE TIME OF DISCHARGE. REPORT WAS GIVEN TO [facility] ( ELECTRONICS TECHNICIAN RAINA). PER PATIENT ( JADEN) MADE AWARE OF PATIENT DISCHARGE. PATIENT LEFT THE UNIT WITH ALL BELONGINGS, IN STABLE CONDITION ALERT ORIENTED X2 AMBULATORY WITH STEADY GAIT.BUSINESS PROCESS MANAGER BY AMBULANCE VIA GURNEY WITH TWO STAFF ASSIST.
[2018-09-13 16:00] VITALS: BP 108/70
--- NOTE | 2018-09-13 16:08 | NUR ---
Discharge Note: Pt was discharged to [facility] (SNF) located at [address] [place] [address]; . Pt was transported via [facility] (Trip #[id number]) at 4pm. Pts , Rohit ([phone]), is aware of the discharge and has approved. Upon discharge, the pt appeared to be in a euthymic mood with a calm affect. Pt denied both suicidal and homicidal ideation as well as auditory and visual hallucinations. Pt was provided with smoking cessation referrals that are listed below. Pt will be under the care of her psychiatrist, Dr. Watson, located at [address] [place] [address]; and her sports broadcaster, Dr. Mckinley, located at [address] [facility] [address], [place] [address]; . Smoking cessation referrals: [employer] 800-LUNGUSA [employer] [phone] Pt was referred to a phone meetinpm 3rd step neil at the phone number: [phone].
--- NOTE | 2018-09-14 10:31 | NUR ---
UR Note: BETTIE faxed a discharge clinical to [facility] with attention to case resource manager, Natalie, to the fax number: [phone].
== END 2018-09-13 15:35 | DRG 885 ==
LOC: GPS 20:47
PROVIDERS: ADMIT Psychiatry & Neurology Psychiatry; ATTEND Psychiatry & Neurology Psychiatry
DX: F31.60 Bipolar disorder, current episode mixed, unspecified (principal); E11.65 Type 2 diabetes mellitus with hyperglycemia; F03.91 Unspecified dementia, unspecified severity, with behavioral disturbance; F29 Unspecified psychosis not due to a substance or known physiological condition; E03.9 Hypothyroidism, unspecified; E78.5 Hyperlipidemia, unspecified; F17.210 Nicotine dependence, cigarettes, uncomplicated; H40.9 Unspecified glaucoma; J44.9 Chronic obstructive pulmonary disease, unspecified; Z79.4 Long term (current) use of insulin
CPT/HCPCS: 36415; 80048-TC; 80053-TC; 80061-TC; 80164-TC; 82962-TC; 85025-TC; 87081-TC; A6403; J1815

== ENCOUNTER 2018-11-18 11:50 | Inpatient (IN) | payer OTHER ==
[~2018-11-18] VITALS: Ht 157.5 cm; Wt 53.8 kg
--- NOTE | 2018-11-18 11:57 | NUR ---
PATIENT MARCUS GUNDERSON FROM [facility] FOR MEDICAL CLEARANCE AND PSYCH EVAL. PATIENT ALERT AND ORIENTED TO SELF ONLY. NO ACUTE DISTRESS. DENIES ANY PAIN OR DISCOMFORT. AWAITING
[2018-11-18 12:13] LABS: BASOPHILS % (AUTO) 0.5 % (0.0-2.0); EOSINOPHILS % (AUTO) 1.6 % (0.0-6.0); HEMATOCRIT 33 % (33-45); HEMOGLOBIN 11.1 g/dL (11.5-14.8); LYMPHOCYTES # (AUTO) 1.5 /CMM (0.8-4.8); LYMPHOCYTES % (AUTO) 18.2 % (20.0-44.0); MEAN CORPUSCULAR HGB CONC 33 g/dl (31.0-36.0); MEAN CORPUSCULAR VOLUME 96 fL (82-100); MONOCYTES # (AUTO) 0.7 /CMM (0.1-1.30); NEUTROPHILS # (AUTO) 5.8 /CMM (1.8-8.9); NEUTROPHILS % (AUTO) 71.7 % (43.0-81.0); PLATELET COUNT (AUTO) 363 /CMM (150-450); RED BLOOD CELL COUNT(AUTO) 3.48 MIL/uL (4.0-5.2); WHITE BLOOD COUNT (AUTO) 8.2 K/uL (4.3-11.0)
[2018-11-18] MEDS ORDERED: LORA0.5T PO (12:22)
[2018-11-18] MEDS ORDERED: ACET-868 PO (12:22)
[2018-11-18] MEDS ORDERED: GLIM4TAB2 PO (12:22)
[2018-11-18] MEDS ORDERED: INSU100V7 SQ ×2 (12:22→12:23)
[2018-11-18] MEDS ORDERED: BENZ-13 PO (12:22)
[2018-11-18] MEDS ORDERED: BRIM5DRO11 EACHEYE (12:22)
[2018-11-18] MEDS ORDERED: CLON0.5T PO (12:22)
[2018-11-18] MEDS ORDERED: OLAN10TA3 PO (12:23)
[2018-11-18] MEDS ORDERED: DORZ10DR10 EACHEYE (12:23)
[2018-11-18] MEDS ORDERED: DIVA125C2 PO (12:23)
[2018-11-18] MEDS ORDERED: INSU100V27 SQ (12:23)
[2018-11-18] MEDS ORDERED: LATA2.5D7 EACHEYE (12:23)
[2018-11-18] MEDS ORDERED: MAGN400O6 PO (12:23)
[2018-11-18] MEDS ORDERED: IPRA3AMP23 IH (12:23)
[2018-11-18] MEDS ORDERED: MAG30ORA PO (12:23)
[2018-11-18] MEDS ORDERED: OLAN5TAB3 PO (12:23)
[2018-11-18] MEDS ORDERED: ALBUTEROL FS 2.5 MG/3 ML VIAL.NEB NEB ONE (12:30)
--- NOTE | 2018-11-18 12:35 | NUR ---
URINE COLLECTED AND SENT TO LAB
[2018-11-18 12:41] LABS: ACETAMINOPHEN 6 ug/ml (10-30); ALANINE AMINOTRANSFERASE 17 U/L (12-78); ALBUMIN 2.9 g/dL (3.4-5.0); ALCOHOL, BLOOD < 3 mg/dL (0-0); ALKALINE PHOSPHATASE 52 U/L (46-116); ASPARTATE AMINOTRANSFERASE 14 U/L (15-37); BILIRUBIN,TOTAL 0.2 mg/dL (0.2-1.0); CALCIUM, SERUM 8.4 mg/dL (8.5-10.1); CARBON DIOXIDE 27 mmol/L (21-32); CHLORIDE 102 mmol/L (98-107); CREATININE 0.9 mg/dL (0.6-1.3); GLUCOSE 194 mg/dL (74-106); POTASSIUM 4.1 mmol/L (3.5-5.1); SALICYLATE 1.6 mg/dL (2.8-20.0); SODIUM SERUM 138 mmol/L (136-145); TOTAL PROTEIN, SERUM 7.2 g/dL (6.4-8.2); UREA NITROGEN, BLOOD 22 mg/dL (7-18)
[2018-11-18 12:42] LABS: B-TYPE NATRIURETIC PEPTIDE 65 PG/ML (0-125)
[2018-11-18 12:44] LABS: APPEARANCE,URINE Clear (CLEAR); BILIRUBIN,URINE Negative (NEGATIVE); BLOOD, URINE Negative Ery/uL (NEGATIVE); COLOR,URINE Yellow (YELLOW); KETONES,URINE Negative (NEGATIVE); LEUKOCYTE ESTERASE ,URINE Negative (NEGATIVE); NITRITE, URINE Negative (NEGATIVE); PROTEIN,URINE Negative (NEGATIVE); UGLUCOSE 500 MG/DL mg/dL (NEGATIVE); UROBILINOGEN,URINE 0.2 EU/dL (0.2)
[2018-11-18] MEDS ORDERED: ALBUTEROL FS 2.5 MG/3 ML VIAL.NEB ONE (12:50)
--- NOTE | 2018-11-18 13:12 | NUR ---
CALLED CRISIS TEAM (ART), NO ETA GIVEN.
--- NOTE | 2018-11-18 15:21 | NUR ---
REPORT GIVEN TO RONNI CASILLAS FOR BILLY
[2018-11-18 15:44] VITALS: BP 119/60
[2018-11-18] MEDS ORDERED: ACETAMINOPHEN 325 MG TABLET PO PRN ×2 (16:00→21:30)
[2018-11-18] MEDS ORDERED: TEMAZEPAM 7.5 MG CAPSULE PO PRN (16:00)
[2018-11-18] MEDS ORDERED: MAG HYDROX/AL HYDROX/SIMETH 30 ML UDC PO PRN ×2 (16:00→21:30)
[2018-11-18] MEDS ORDERED: MAGNESIUM HYDROXIDE 30 ML UDC PO PRN ×2 (16:00→21:30)
[2018-11-18] MEDS ORDERED: LORAZEPAM 0.5 MG TABLET PO PRN (16:00)
--- NOTE | 2018-11-18 18:22 | NUR ---
CHIEF STATION ENGINEER NOTE: PATIENT IS A 73 YEAR OLD FEMALE BROUGHT IN TO THE HOSPITAL BY AMBULANCE, ADMITTED ON A 5[address] GD FROM [facility]. PATIENT BIB AMBULANCE FROM [facility] DUE TO BEING AGITATED, AGGRESSIVE AND COMBATIVE. PATIENT TRIED TO STRIKE THE LEATHER CARVER INTERFERING WITH THE ADMINISTRATION OF MEDICATIONS TO OTHER RESIDENTS. PATIENT TRIED TO ELOPE. PATIENT IS NOT ABLE TO BE REDIRECTED. PATIENT KNOWS HER NAME ONLY OTHERWISE CONFUSED AND DISORGANIZED AND A POOR HISTORIAN. PATIENT IS AGITATED. PATIENT HAS POOR INSIGHT AND IMPULSE CONTROL. PATIENT'S JUDGEMENT IS IMPAIRED. PATIENT IS NON-COMPLIANT WITH CARE. PATIENT IS NOT ABLE TO PROVIDE FOR HER FOOD, HALF-WAY OR CLOTHING DUE TO A MENTAL DISORDER. [facility] IS NOT ABLE TO PROVIDE THE SAME DUE TO HER BEHAVIOR. AT THIS TIME, PATIENT IS COOPERATIVE. SKIN CHECK WAS COMPLETE WITH PHOTOS TAKEN AND INSERTED IN CHART. VSS. NO SIGNS OF ACUTE DISTRESS NOTED APART FROM CHRONIC RESPIRATORY SYMPTOMS SECONDARY TO COPD. PATIENT DENIES SOB/ CHEST PAIN. NO COMPLAINTS AT THE MOMENT. PATIENT HAS A LABILE AND SUSPICIOUS MOOD. SHE IS ALERT AND ORIENTED X2 TO NAME AND PLACE BUT UNABLE TO ANSWER SOME SIMPLE QUESTIONS. PATIENT DENIES SI/HI/ AUDITORY OR VISUAL HALLUCINATIONS AT THIS TIME. SPEECH IS CLEAR BUT DOESN'T MAKE SENSE. BIZARRE APPEARANCE BUT WELL GROOMED. HANDBOOK WAS GIVEN INCLUDING THE PATIENT'S RIGHTS AND GUIDE TO PRESCRIPTIONS. DR. WELDON NOTIFIED OF ADMISSION AND LEONARD CONTACTED, AWAITING RESPONSE FOR NOTIFICATION.
[2018-11-18 20:00] VITALS: BP 117/59
--- NOTE | 2018-11-18 20:53 | NUR ---
PAGED DR. DE LOS SANTOS, RE: MED RECONCILIATION.
[2018-11-18] MEDS ORDERED: BRIMONIDINE TARTRATE OPHT SOLN 5 ML BOTTLE EACHEYE SCH (21:30)
[2018-11-18] MEDS ORDERED: BENZONATATE 100 MG CAPSULE PO PRN (21:30)
[2018-11-18] MEDS: DORZOLAMIDE OPTH 2% 10 ML BOTTLE EACHEYE SCH (21:30)
[2018-11-18] MEDS ORDERED: DEXTROSE 50%-WATER 50 ML DISP.SYRIN IV PRN (21:30)
[2018-11-18] MEDS ORDERED: INSULIN REGULAR, HUMAN 100 UNIT/ML 3 ML VIAL SQ PRN (21:30)
[2018-11-18] MEDS: *INSULIN REGULAR(HUMULIN R)HUM 100 UNIT/ML VIAL SQ PRN (21:34)
[2018-11-18] MEDS: BLOOD SUGAR DIAGNOSTIC 1 EACH STRIP VI SCH (21:37)
[2018-11-18] MEDS: LATANOPROST EYE DROP 0.005% 2.5 ML BOTTLE EACHEYE SCH (21:37)
[2018-11-18] MEDS: INSULIN GLARGINE, 100 UNIT/ML CARTRIDGE SQ SCH (21:38)
--- NOTE | 2018-11-18 21:38 | NUR ---
LANTUS 60 UNITS NOT ADMINISTERED, ACCUCHECK 147 MG/DL.MD NOTIFIED.
[2018-11-18] MEDS ORDERED: INSULIN GLARGINE HUM REC ANLOG 60 UNIT SQ SCH (22:00)
[2018-11-18] MEDS ORDERED: IPRATROPIUM NEB FS 0.5 MG/2.5 ML AMPUL.NEB NEB PRN (22:30)
[2018-11-18] MEDS: ATORVASTATIN 10 MG TABLET PO SCH (22:35)
[2018-11-18] MEDS: GUAIFENESIN LA 600 MG TABLET.SA PO SCH (22:36)
--- NOTE | 2018-11-19 03:17 | NUR ---
RT NOTE RT BEDSIDE WITH PRIMARY RN. PATIENT REFUSING BREATHING TREATMENT AT THIS TIME. SPO2 96%HR 98. PATIENT HAS NO SIGNS OF RESPIRATORY DISTRESS AT THIS TIME. RNSUSI, AWARE PATIENT IS REFUSING. WILL CONTINUE TO MONITOR PATIENT.
[2018-11-19] MEDS ORDERED: DIVALPROEX SODIUM 125 MG CAP.SPRINK PO SCH (05:00)
[2018-11-19] MEDS ORDERED: IPRATROPIUM NEB FS 0.5 MG/2.5 ML AMPUL.NEB NEB PRN (07:00)
[2018-11-19] MEDS: BLOOD SUGAR DIAGNOSTIC 1 EACH STRIP VI SCH ×4 (07:23→22:13)
[2018-11-19] MEDS ORDERED: ALBUTEROL FS 2.5 MG/0.5 ML VIAL.NEB NEB PRN (07:35)
[2018-11-19] MEDS: LEVOTHYROXINE SODIUM 88 MCG TABLET PO SCH (07:58)
[2018-11-19 08:00] VITALS: BP 109/60
[2018-11-19 08:02] LABS: CHOLESTEROL 140 mg/dL (<200); HDL CHOLESTEROL 49 mg/dL (40-60); LDL 63 mg/dL (0-99); TRIGLYCERIDES 189 mg/dL (30-150)
[2018-11-19 08:03] LABS: ALANINE AMINOTRANSFERASE 17 U/L (12-78); ALKALINE PHOSPHATASE 54 U/L (46-116); ASPARTATE AMINOTRANSFERASE 14 U/L (15-37); BILIRUBIN,TOTAL 0.3 mg/dL (0.2-1.0); CALCIUM, SERUM 9.3 mg/dL (8.5-10.1); CARBON DIOXIDE 27 mmol/L (21-32); CHLORIDE 109 mmol/L (98-107); CREATININE 0.7 mg/dL (0.6-1.3); GLUCOSE 80 mg/dL (74-106); POTASSIUM 4.3 mmol/L (3.5-5.1); SODIUM SERUM 144 mmol/L (136-145); TOTAL PROTEIN, SERUM 7.7 g/dL (6.4-8.2); UREA NITROGEN, BLOOD 22 mg/dL (7-18)
[2018-11-19] MEDS: GUAIFENESIN LA 600 MG TABLET.SA PO SCH ×2 (08:29→20:25)
[2018-11-19] MEDS: GLIMEPIRIDE 4 MG TABLET PO SCH (08:29)
[2018-11-19] MEDS: DORZOLAMIDE OPTH 2% 10 ML BOTTLE EACHEYE SCH ×3 (08:30→16:15)
[2018-11-19] MEDS ORDERED: INSULIN GLARGINE HUM REC ANLOG 42 UNIT SQ SCH (09:00)
[2018-11-19] MEDS: BRIMONIDINE TARTRATE OPHT SOLN 5 ML BOTTLE EACHEYE SCH ×3 (09:46→23:10)
[2018-11-19] MEDS: INSULIN GLARGINE, 100 UNIT/ML CARTRIDGE SQ SCH ×2 (09:49→22:21)
--- NOTE | 2018-11-19 14:46 | NUR ---
SW contacted Joe ([phone]) from [facility] who stated that they have to speak to their revenue cycle administrator on whether or not the pt can return to their facility. He stated that he would inform the SW as soon as possible.
--- NOTE | 2018-11-19 14:47 | NUR ---
BETTIE called the pts , Rohit Hull ([phone]), and informed him about the pts treatment plan and her initial discharge plan. He stated that he was in the process of conserving the pt and that he would like for her to return to [facility]. BETTIE stated that once she has an update, she will contact him.
--- NOTE | 2018-11-19 15:06 | NUR ---
Group note: Pt was encouraged to join group therapy session on 11/19/18 at 2:00pm. Pt. unable to attend group.
--- NOTE | 2018-11-19 15:09 | NUR ---
Initial Discharge Plan: Pt currently resides at [facility] located at [address] [place] [address]; ([phone]). Per pts , Rohit ([phone]), he would like her to return. Per the facility, they are making a decision with their administration. SW will work with the pt and the MD regarding appropriate discharge planning. SW will form a safe and proper discharge.
--- NOTE | 2018-11-19 15:13 | NUR ---
UR Note: BETTIE faxed a clinical review to [facility] with attention to Pramod to the fax number: [phone].
[2018-11-19 16:00] VITALS: BP 130/73
[2018-11-19] MEDS: OLANZAPINE 5 MG TABLET PO SCH (16:14)
[2018-11-19] MEDS: DIVALPROEX SODIUM 125 MG CAP.SPRINK PO SCH (16:15)
[2018-11-19 20:07] VITALS: BP 106/69
[2018-11-19] MEDS ORDERED: OLANZAPINE 10 MG TABLET PO SCH (22:00)
[2018-11-19] MEDS: LATANOPROST EYE DROP 0.005% 2.5 ML BOTTLE EACHEYE SCH (22:15)
[2018-11-19] MEDS: *INSULIN REGULAR(HUMULIN R)HUM 100 UNIT/ML VIAL SQ PRN (22:18)
[2018-11-19] MEDS: ATORVASTATIN 10 MG TABLET PO SCH (22:49)
[2018-11-20 08:00] VITALS: BP 108/67
[2018-11-20] MEDS: BLOOD SUGAR DIAGNOSTIC 1 EACH STRIP VI SCH (08:17)
[2018-11-20] MEDS ORDERED: Dapagliflozin Propanediol (Farxiga) 5 MG PO SCH (09:00)
[2018-11-20] MEDS: INSULIN GLARGINE, 100 UNIT/ML CARTRIDGE SQ SCH (09:56)
[2018-11-20] MEDS: BRIMONIDINE TARTRATE OPHT SOLN 5 ML BOTTLE EACHEYE SCH (10:02)
[2018-11-20] MEDS: DORZOLAMIDE OPTH 2% 10 ML BOTTLE EACHEYE SCH (10:03)
[2018-11-20] MEDS: GUAIFENESIN LA 600 MG TABLET.SA PO SCH (10:08)
[2018-11-20] MEDS: DIVALPROEX SODIUM 125 MG CAP.SPRINK PO SCH (10:08)
[2018-11-20] MEDS: OLANZAPINE 5 MG TABLET PO SCH (10:08)
[2018-11-20] MEDS: LEVOTHYROXINE SODIUM 88 MCG TABLET PO SCH (10:08)
[2018-11-20] MEDS: GLIMEPIRIDE 4 MG TABLET PO SCH (10:09)
--- NOTE | 2018-11-20 12:00 | NUR ---
JUST CHECKED BGL AND PT. IN DINING RM. EATING.
--- NOTE | 2018-11-20 12:05 | NUR ---
CALLED BY GERMÁN RN TO LOOK AT PT. REGIONAL GEODETIC ADVISOR WHEELING PT. OUT OF DINING RM. NOTED PT. GURGLING AT MOUTH,SOMEWHAT UNRESPONSIVE. PT. IMMEDIATELY PUT IN TO BED. VS TAKEN O2 ON,POLICY CHECKER TO BE CALLED.
--- NOTE | 2018-11-20 12:07 | NUR ---
ELECT EQUIP MAINT ENG CALLED.VS TAKEN.136/94,[id number] RATE 149POX 94%.BGL CHECKED AND 232.INC. OF URINE.HOOKED UPTO O2.HAVING SEIZURE LIKE ACTIVITY WITH NO SEIZURE HX.SHAKING ALL OVER.PER RESP. PT. WITH RHONCHI.
[2018-11-20 12:10] VITALS: BP 144/86
--- NOTE | 2018-11-20 12:14 | NUR ---
BP 136/94,HR 133 [id number] 93%.PT. IN NSR.
--- NOTE | 2018-11-20 12:17 | NUR ---
BP 143/64 HR 127,RR 20 POX 98%.O2 OFF NOW WITH COPD.
--- NOTE | 2018-11-20 12:20 | NUR ---
CODE ENDED DEPUTY INSURANCE COMMISSIONER,ARRANGED FOR BED.SADIA GARCIA CALLED.
--- NOTE | 2018-11-20 12:45 | NUR ---
TRANFERRED VIA BED TO RM. [facility].REPORT AND PAPERS TO CAT RN ON [facility].NO PHOTOS DONE DUE TO EMERGENCY TRANSFER TO [facility].
--- NOTE | 2018-11-20 13:00 | NUR ---
RN [facility] ADMISSION NOTES PATIENT CAME IN VIA [facility]. ACLS PROTOCOL. PATIENT CAME FROM GPS, TRANSFERRED TO [facility]. RAPID RESPONSE WAS CALLED OUT BECAUSE OF PATIENT STARTED TO HAVE SEIZURE LIKE ACTIVITY. DROOLING AND TACHYCARDIC. PATIENT ALERT TO SELF ONLY. WAS TALKING GREEK WHEN ASKED QUESTIONS IN TAJIK. NO COMPLAINS OF PAIN OR ANY SOB. PATIENT STARTED TO CRY, WHEN ASKED WHY PATIENT DID NOT ANSWER VERBALLY. PATIENT ON 5150 UP TO 11/21. NEURO CONSULT PER MD. PER REPORT, PATIENT IS AGITATED, AGGRESSIVE AND COMBATIVE AND TRIED TO STRIKE STAFF BEFORE. ALSO, TRIED TO ELOPE. HAS A PYSCH DX OF PSYCHOSIS, BIPOLAR AND SCHIZO. MEDICAL DX OF COPD, DM, GLAUCOMA AND HYPOTHYROIDISM. BED LOCKED AND IN LOWEST POSITION. CALL LIGHT WITHIN REACH. WILL CONTINUE TO MONITOR PATIENT CLOSELY
[2018-11-20] MEDS ORDERED: SCOPOLAMINE HBR 1 EA PATCH.TD72 TD SCH (13:30)
[2018-11-21] MEDS ORDERED: GUAI600T53 PO (08:02)
[2018-11-21] MEDS ORDERED: BLOO-668 IN (08:02)
--- NOTE | 2018-11-22 11:40 | NUR ---
BETTIE called the pts , Rohit Hull ([phone]), and informed him that the pt was discharged to the Medical Floor on Thursday due to respiratory distress. He stated that he was informed but that he still had some questions that the SW attempted to answer.
--- NOTE | 2018-11-22 12:25 | NUR ---
Discharge Note: Pt was discharged to the [facility] Medical Floor on 11/21/18 due to respiratory distress.
[2018-11-22] MEDS ORDERED: INSU100V28 SQ (22:28)
[2018-11-22] MEDS ORDERED: METH4TAB17 PO (22:28)
[2018-11-22] MEDS ORDERED: OLAN2.5T3 PO (22:28)
[2018-11-22] MEDS ORDERED: IPRA0.2S9 NEB (22:28)
[2018-11-22] MEDS ORDERED: SCOP1PAT11 TD (22:28)
[2018-11-22] MEDS ORDERED: ALBU2.5V13 NEB (22:28)
[2018-11-22] MEDS ORDERED: DIVA125C2 PO (22:28)
--- NOTE | 2018-11-23 12:52 | NUR ---
UR Note: BETTIE faxed a discharge clinical to [facility] with attention to Pramod to the fax number: [phone].
== END 2018-11-20 13:16 | disposition short-term general hospital (02) | DRG 885 ==
LOC: ER 11:51 → GPS 15:21 → TELE-TD 11-20 12:54 → UNDODISIN 11-20 13:16
PROVIDERS: ADMIT Psychiatry & Neurology Psychiatry; ATTEND Nurse Practitioner Acute Care
DX: F31.60 Bipolar disorder, current episode mixed, unspecified (principal); F01.51 Vascular dementia, unspecified severity, with behavioral disturbance; E11.65 Type 2 diabetes mellitus with hyperglycemia; E44.1 Mild protein-calorie malnutrition; F03.91 Unspecified dementia, unspecified severity, with behavioral disturbance; E78.5 Hyperlipidemia, unspecified; E03.9 Hypothyroidism, unspecified; J44.9 Chronic obstructive pulmonary disease, unspecified; J06.9 Acute upper respiratory infection, unspecified; D63.8 Anemia in other chronic diseases classified elsewhere; Z68.21 Body mass index [BMI] 21.0-21.9, adult; H40.9 Unspecified glaucoma; F29 Unspecified psychosis not due to a substance or known physiological condition; R06.03 Acute respiratory distress; F17.210 Nicotine dependence, cigarettes, uncomplicated
CPT/HCPCS: 36415; 71045-TC; 80048-TC; 80053-TC; 80061-TC; 80076-TC; 80305; 81000-TC; 82962-TC; 83880; 84484-TC; 85025-TC; 87081-TC; G0480; J1815